=== PATIENT | male | born 1970 | race Caucasian/White ===

== ENCOUNTER 2023-09-16 11:39 | Emergency (ER) | payer SELFPAY ==
[~2023-09-16] VITALS: Ht 182.9 cm; Wt 117.5 kg
[2023-09-16 11:47] VITALS: BP_SYST 195; PULSE 74; RESP 20; TEMP 98.3; O2SAT 98
== END 2023-09-16 13:00 | disposition left against medical advice (07) ==
LOC: SED 11:39
DX: R10.9 Unspecified abdominal pain (principal); Z53.21 Procedure and treatment not carried out due to patient leaving prior to being seen by health care provider